=== PATIENT | male | born 1960 ===

== ENCOUNTER 2020-02-26 07:27 | Emergency (ER) | payer OTHER ==
--- NOTE | 2020-02-26 08:16 | EDM.PDOC ---
ED HPI GENERAL MEDICAL PROBLEM - General Chief Complaint: Back Pain or Injury Stated Complaint: BACK INJURY Time Seen by Provider: 02/26/20 07:45 Source of Information: Reports: Patient, RN Notes Reviewed - History of Present Illness INITIAL COMMENTS - FREE TEXT/NARRATIVE: 59 yr old male with onset of L low back pain yesterday much worse this AM. Pain is radiating down his L leg. Hx of previous similar problems about a yr ago. 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 Left Lower Back Pain Score (Numeric/FACES): 9 - Related Data Allergies Allergy/AdvReac Type Severity Reaction Status Date / Time No Known Allergies Allergy Verified 02/26/20 07:41 Home Meds: Home Meds Acetaminophen/HYDROcodone [Daisy 325-5 MG] 1 tab PO Q6H PRN #14 tablet 02/26/20 [Rx] predniSONE [Prednisone] 50 mg PO DAILY #6 tablet 02/26/20 [Rx] Social & Family History - Tobacco Use Tobacco Use Status *Q: Current Every Day Tobacco User Years of Tobacco use: 38 Packs/Tins Daily: 1.5 - Caffeine Use Caffeine Use: Reports: Coffee - Recreational Drug Use Recreational Drug Use: No ED ROS GENERAL - Review of Systems Review Of Systems: See Below Constitutional: Denies: Fever, Chills, Diaphoresis HEENT: Reports: No Symptoms Respiratory: Denies: Shortness of Breath Cardiovascular: Denies: Chest Pain GI/Abdominal: Denies: Abdominal Pain Musculoskeletal: Reports: Back Pain, Leg Pain Skin: Reports: No Symptoms Neurological: Denies: Numbness, Tingling, Weakness ED EXAM,LOWER BACK PAIN/INJURY - Physical Exam Exam: See Below General Appearance: Alert, Mild Distress Head: Atraumatic Neck: Supple Respiratory/Chest: No Respiratory Distress Back Exam: Paraspinal Tenderness (very mild tenderness L low back), Other (now swelling, warmth or erythema visible). No: Vertebral Tenderness Extremities: Normal Inspection, Normal Range of Motion. No: Pedal Edema, Leg Pain Course - Vital Signs Last Recorded V/S: Last Vital Signs Temp 97.1 F 02/26/20 07:36 Pulse 75 02/26/20 07:36 Resp 16 02/26/20 07:36 BP 162/100 H 02/26/20 07:36 Pulse Ox 98 02/26/20 07:36 Departure - Departure Time of Disposition: 20:00 Disposition: Home, Self-Care 01 Condition: Fair Clinical Impression: Back pain Qualifiers: Back pain location: low back pain Chronicity: acute Back pain laterality: left Sciatica presence: with sciatica Sciatica laterality: sciatica of left side Qualified Code(s): M54.42 - Lumbago with sciatica, left side - Discharge Information Prescriptions: Acetaminophen/HYDROcodone [Daisy 325-5 MG] 1 tab PO Q6H PRN #14 tablet PRN Reason: Pain predniSONE [Prednisone] 50 mg PO DAILY #6 tablet Instructions: Acute Back Pain, Adult Referrals: PCP,None [Primary Care Provider] - Forms: ED Department Discharge, ED Return to Work/School Form Additional Instructions: Rest back, no heavy lifting until pain resolving. Tylenol 3 to 4 times daily or hydrocodone if needed for severe pain. Prescription has been sent to [facility] on [facility]. Do not drive or work when taking hydrocodone. Follow up [facility] or with your regular provider if not much better within 3 to 5 days as expected. Sepsis Event Note (ED) - Evaluation Sepsis Screening Result: No Definite Risk - Focused Exam Vital Signs: Vital Signs Temp Pulse Resp BP Pulse Ox 02/26/20 07:36 97.1 F 75 16 162/100 H 98
== END 2020-02-26 08:38 | disposition home or self-care (01) ==
LOC: JD.ED 07:27
DX: M54.42 Lumbago with sciatica, left side (principal); F17.210 Nicotine dependence, cigarettes, uncomplicated
CPT/HCPCS: 99283